=== PATIENT | male | born 1970 | race Caucasian/White ===

== ENCOUNTER 2022-02-28 08:19 | Emergency (ER) | payer OTHER, SELFPAY ==
[2022-02-28 08:28] VITALS: BP 187/114; PULSE 86; RESP 20; TEMP 36.9; O2SAT 98
--- NOTE | 2022-02-28 08:32 | ED.SKABFB ---
HPI - Skin/Abscess/Foreign Bdy General Chief complaint: Skin/Abscess/Foreign Body Stated complaint: rash on arms Time Seen by Provider: 02/28/22 08:37 Source: patient Mode of arrival: ambulatory Limitations: no limitations History of Present Illness HPI narrative: 51-year-old male presented for complaint of rash to both arms for almost 1 week. He states it started after clearing brush and has been treating poison jamila with Benadryl and Pepcid per pharmacist recommendations, and using hydrocortisone cream occasionally. He states he continues to have eruptions over both arms and endorses itching. Denies pain, drainage, or changes to any lotion, soap, detergent etc. He denies lesions anywhere else, denies lip, tongue, or throat swelling, itching, difficulty breathing or wheezing. MD complaint: rash Related Data Allergies Allergy/AdvReac Type Severity Reaction Status Date / Time No Known Drug Allergies Allergy Unknown Verified 02/28/22 08:37 Review of Systems Review of Systems: CONSTITUTIONAL: Denies body aches, fever, chills, or sweats. EYES: Denies visual changes, swelling or discharge. ENT: Denies rhinorrhea, congestion, sore throat CARDIOVASCULAR: Denies chest pain, palpitations, or edema. RESPIRATORY: Denies cough or dyspnea. GASTROINTESTINAL: Denies abdominal pain, nausea, vomiting, or diarrhea. SKIN: endorses rash, itching MUSCULOSKELETAL: Denies back pain, joint pain, or myalgia. NEUROLOGIC: Denies headache, numbness, tingling, or weakness. PMFSH Comments At time of signature, I have reviewed and agree with nursing past medical, surgical, social and family history unless otherwise noted. Please see nursing chart for further information. There is no relevant family history pertinent to the presenting complaint Exam Narrative: GENERAL: Well-appearing EYES: conjunctivae clear, and EOMI, no swelling ENT: Mucous membranes moist. Oropharynx without edema, erythema or lesions. CHEST: Clear to auscultation. No respiratory distress. HEART: Regular rate and rhythm. SKIN: Warm, dry. Scattered erythematous vesicular patches to bilateral forearms c/w contact dermatitis, small amount of oozing to sites, no pain NEURO: Alert and oriented x3. PSYCH: Normal mood and affect Course Course Emergency Course: Patient is aware of diagnosis, understands and agrees to treatment plan. Anticipatory guidance given. Patient agrees to follow-up as directed and is aware of reasons to seek care at the emergency department. Portions of this record may have been created with voice recognition software Level of Care: Express Care Visit Vital Signs Vital signs: Reviewed MDM - Skin/Abscess/Foreign Bdy MDM Narrative Medical decision making narrative: PE c/w contact dermatitis, c/w history of clearing brush. Also discussed elevated bp and the importance of close f/u with pcp. Instructed patient to go to nearest ER immediately for any worsening symptoms including but not limited to: fever, spreading rash, pain, sore throat, headache, dizziness, chest pain, trouble breathing, or any symptoms concerning to the patient. Differential Diagnosis Differential diagnosis: Likely abscess of skin or subcutaneous tissue, urticaria, herpes zoster, cellulitis and contact dermatitis Discharge Plan Discharge Clinical Impression: Contact dermatitis Patient Disposition: Home, Self-Care Condition: Stable Instructions: Antibiotic Form, Poison Jamila (ED) Additional Instructions: Your blood pressure is elevated today (above 120/80). Please follow-up with a primary care provider for further evaluation and management of this condition. Wash the area with gentle soap and water only. Use skin cream (Benadryl cream or hydrocortisone cream) as needed to reduce itchiness Avoid scratching when possible to prevent worsening of the condition and disruption of the skin that could lead to bacterial infection To relieve itching, place a cool washcloth or nghia
== END 2022-02-28 08:48 | disposition home or self-care (01) ==
PROVIDERS: Emergency Provider Nurse Practitioner Family
DX: L25.9 Unspecified contact dermatitis, unspecified cause (principal); Z98.84 Bariatric surgery status
CPT/HCPCS: 99203; G0463

== ENCOUNTER 2022-10-30 07:27 | Outpatient (CLI) | payer OTHER, SELFPAY ==
[2022-10-30 19:39] LABS: Basophils Absolute Auto 0.1 K/mm3 (0.0-0.1); Basophils Percent Auto 0.9 % (0.2-1.2); Eosinophils Absolute Auto 0.2 K/mm3 (0-0.3); Eosinophils Percent Auto 2.4 % (0-4.4); Hematocrit 50.9 % (42.0-52.0); Hemoglobin 15.2 g/dL (14.0-18.0); Immature Granulocyte Absolute 0.03 K/mm3 (0.00-0.031); Immature Granulocyte Percent A 0.4 % (0-0.5); Lymphocytes Absolute Auto 2.31 K/mm3 (0.9-3.2); Lymphocytes Percent Auto 29.4 % (18.3-44.2); Mean Corpuscular HGB Conc 29.9 g/dl (32-36); Mean Corpuscular Hemoglobin 24.6 pg (26-34); Mean Corpuscular Volume 82.5 fl (80-100); Mean Platelet Volume 10.3 fl (7.4-10.4); Monocytes Absolute Auto 0.7 K/mm3 (0.1-0.6); Monocytes Percent Auto 8.8 % (2.6-8.5); Neutrophils Absolute Auto 4.6 K/mm3 (1.3-6.7); Neutrophils Percent Auto 58.1 % (45.5-73.1); Platelet Count Result 355 k/mm3 (150-375); Red Blood Count 6.17 M/mm3 (4.6-6.20); White Blood Count 7.9 K/mm3 (4.5-10.0)
[2022-10-30 19:40] LABS: Alanine Aminotransferase 47 U/L (6-50); Albumin Level 4.5 g/dL (3.5-5.1); Alkaline Phosphatase 100 U/L (38-126); Anion Gap 7 mmol/L (8-16); Aspartate Amino Transferase 70 U/L (17-59); Bilirubin,Total 1.1 mg/dL (0.2-1.3); Blood Urea Nitrogen 15 mg/dL (9-20); Calcium 9.2 mg/dL (8.4-10.2); Carbon Dioxide 28 mmol/L (22-30); Chloride 107 mmol/L (98-107); Cholesterol 200 mg/dL (0-200); Estimated Glomerular Filt Rate > 60; Glucose 77 mg/dL (65-110); HDL Direct 32 mg/dL; Potassium 4.5 mmol/L (3.4-5.0); Sodium 142 mmol/L (137-145); Triglycerides 117 mg/dL (<150)
[2022-10-30 19:51] LABS: LDL Cholesterol Direct 123 mg/dL
[2022-10-30 20:07] LABS: Prostate Specific Antigen 1.6 ng/mL (< OR = 4.0)
[2022-10-30 20:42] LABS: Hypochromasia 1+ (NORMAL); Platelet Estimate Adequate (Adequate); Schistocytes None Seen (NORMAL)
[2022-10-30 20:43] LABS: Anisocytosis 2+ (NORMAL)
== END 2022-10-30 07:28 | disposition home or self-care (01) ==
PROVIDERS: PCP Family Medicine; Visit Provider Family Medicine
DX: Z00.00 Encounter for general adult medical examination without abnormal findings (principal)
CPT/HCPCS: 36415; 80053; 80061; 84153; 85025; G0103

== ENCOUNTER 2023-04-23 07:32 | Outpatient (CLI) | payer OTHER, SELFPAY ==
[2023-04-23 19:27] LABS: Alanine Aminotransferase 46 U/L (6-50); Albumin Level 4.1 g/dL (3.5-5.1); Alkaline Phosphatase 85 U/L (38-126); Aspartate Amino Transferase 51 U/L (17-59); Bilirubin,Total 0.7 mg/dL (0.2-1.3)
[2023-04-23 19:56] LABS: Hepatitis B Surface Antigen Negative (Negative)
[2023-04-23 20:02] LABS: HAV RESULT Negative (Negative); Hepatitis B Core IgM Result Negative (Negative)
[2023-04-23 20:13] LABS: Hepatitis C Virus Antibody Negative (Negative)
== END 2023-04-23 07:33 | disposition home or self-care (01) ==
PROVIDERS: PCP Family Medicine; Visit Provider Family Medicine
DX: E66.9 Obesity, unspecified (principal); I10 Essential (primary) hypertension
CPT/HCPCS: 36415; 80074; 80076

== ENCOUNTER 2024-03-31 15:28 | Outpatient (CLI) | payer OTHER, SELFPAY ==
--- NOTE | ~2024-03-31 | XR_ITS ---
EXAMINATION: XR knee LT min 4V DATE: 03/31/2024 15:48 INDICATION: Unspecified injury of left lower leg, initial encounter. TECHNIQUE: 4 views of left knee were obtained. COMPARISON: None. FINDINGS: Alignment is normal. No fracture. There is mild tricompartmental osteoarthritis characteriz ed by tiny osteophytes. No joint space narrowing. There is a small knee joint effusion. IMPRESSION: 1. Mild left knee osteoarthritis. 2. Small left knee joint effusion. Reviewed, dictated and finalized at location A.
== END 2024-03-31 15:29 | disposition home or self-care (01) ==
PROVIDERS: PCP Family Medicine; Visit Provider Nurse Practitioner Family
DX: S89.92XA Unspecified injury of left lower leg, initial encounter (principal); M17.12 Unilateral primary osteoarthritis, left knee; M25.462 Effusion, left knee
CPT/HCPCS: 73564

== ENCOUNTER 2025-05-13 00:23 | Day surgery (SDC) | payer OTHER, SELFPAY ==
[2025-05-02 09:28] VITALS: BMI 43.6
[2025-05-13 07:44] VITALS: BP 154/99; PULSE 94; RESP 16; TEMP 36.6; O2SAT 97; BMI 42.5
[2025-05-13] MEDS: LACTATED RINGERS 1,000 ML 150 ML IV CONT ×2 (07:53→11:08)
[2025-05-13] MEDS: SIMETHICONE ORAL SUSPENSION 20 MG/0.3 ML 30 ML BOTTLE 1.8 ML PO (08:06)
--- NOTE | 2025-05-13 08:36 | P.PNAN_ITS ---
Anes - Initial Pre Proc Eval Procedure: Operation Date: 05/13/25 09:00 Proposed Procedures p EGD & Screening Colonoscopy - Malik Gutierres MD Date/Time: 05/13/25 08:36 Surgeon: Malik Gutierres MD Pre Op Diagnosis: Encounter for screening for malignant neoplasm of Patient Data Age: 54 Gender: M Height: 1.83 m Weight: 142.2 kg Last Vital Signs Temp 97.8 F 05/13/25 07:44 Pulse 94 05/13/25 07:44 Resp 16 05/13/25 07:44 BP 154/99 H 05/13/25 07:44 Pulse Ox 97 05/13/25 07:44 O2 Del Method Room Air 05/13/25 07:44 Allergies Allergy/AdvReac Type Severity Reaction Status Date / Time No Known Drug Allergies Allergy Unknown Verified 05/13/25 07:43 Home Medications ?Medication ?Instructions ?Recorded ?Confirmed ?Type omeprazole 40 mg capsule,delayed 40 mg PO BID #180 cap s 12/28/24 05/13/25 Rx release lisinopril 40 mg tablet See Rx Instructions .Route 0 01/13/25 05/13/25 Rx .COMPLEX #90 tabs Patient hx anesthesia problems: post op nausea/vomiting and other (slow to emerge in the past. ) Family hx anesthesia problems: none Results Review: All pre-operative results and documents have been reviewed as part of the pre- operative evaluation. [facility] Surgical History Surgical History H/O gastric sleeve History of back surgery Family History Family History Father Malignant neoplasm of prostate Mother Hypertension Social History Social History Smoking status: Former smoker Tobacco type: smokeless tobacco Smokeless tobacco user: chewing tobacco Alcohol intake: current Drinks per week: 15 Alcohol use details: Beer Substance use: never Substance use type: does not use Lack of Transportation: No Lack of Food: Never True Current Housing: I Have Housing Concerned About Future Housing: No Difficulty Paying Gas/Electric Bills: No Difficulty Paying for Meds: No Currently Unemployed: No Education: Associate Degree Difficulty w/ Childcare or Family Care: No Living arrangements: with family Occupation/Education: occupation 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 HTN, BMI 42, GERD w hx of gastric sleeve, no early satiety. 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 Informed Consent: The patient's anesthetic plan and its attendant risks and benefits were discussed with the patient/family/POA. Questions were solicited and answers provided to the satisfaction of the patient/family/POA.
--- NOTE | 2025-05-13 09:07 | P.HP_ITS ---
H&P: HPI History of Present Illness Date/Time: 05/13/25 09:07 Chief Complaint: History of gastric sleeve- GERD-screening colonoscopy Narrative: the patient has a history of vertical gastrectomy, and is now experiencing almost daily episodes of heartburn, mainly at night associated with regurgitation and nausea. He is referred for EGD. There is no dysphagia. In addition he is also referred for screening colonoscopy. Review of Systems Review of Systems: All systems reviewed & are unremarkable except as noted in HPI and below PMFSH Surgical History Surgical History H/O gastric sleeve History of back surgery Family History Family History Father Malignant neoplasm of prostate Mother Hypertension Social History Social History Smoking status: Former smoker Tobacco type: smokeless tobacco Smokeless tobacco user: chewing tobacco Alcohol intake: current Drinks per week: 15 Alcohol use details: Beer Substance use: never Substance use type: does not use Lack of Transportation: No Lack of Food: Never True Current Housing: I Have Housing Concerned About Future Housing: No Difficulty Paying Gas/Electric Bills: No Difficulty Paying for Meds: No Currently Unemployed: No Education: Associate Degree Difficulty w/ Childcare or Family Care: No Living arrangements: with family Occupation/Education: occupation 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 Gender identity (if verbalized by the patient): Male Spiritual care concerns: No Agree to blood products: Yes Meds Home Medications and Allergies Home Medications ?Medication ?Instructions ?Recorded ?Confirmed ?Type omeprazole 40 mg capsule,delayed 40 mg PO BID #180 cap s 12/28/24 05/13/25 Rx release lisinopril 40 mg tablet See Rx Instructions .Route 0 01/13/25 05/13/25 Rx .COMPLEX #90 tabs Allergies Allergy/AdvReac Type Severity Reaction Status Date / Time No Known Drug Allergies Allergy Unknown Verified 05/13/25 07:43 Vital Signs Vital Signs - 24 hr 05/13/25 07:44 Temperature 97.8 F Pulse Rate 94 Respiratory Rate 16 Blood Pressure 154/99 H Pulse Oximetry 97 Oxygen Delivery Room Air Exam Const: General: cooperative and healthy appearing Resp: Effort & Inspection: normal respiratory effort and able to speak in complete sentences Auscultation: clear to auscultation bilaterally Cardio: Rate: regular rate Rhythm: regular rhythm GI: Inspection: normal to inspection GI Palp: No No hepatosplenomegaly present Auscultation: normal bowel sounds Rectal Exam: deferred Skin: General skin exam: normal color Psych: Appearance: grossly normal Mental Status: mental status grossly normal Assessment and Plan Assessment and plan (1) GERD (gastroesophageal reflux disease): Code(s): K21.9 - Gastro-esophageal reflux disease without esophagitis Status: Acute Assessment and Plan: The patient is deemed a good candidate for the procedures. Consent signed. Will proceed. (2) Colon cancer screening: Code(s): Z12.11 - Encounter for screening for malignant neoplasm of colon Status: Acute
--- NOTE | 2025-05-13 09:26 | SUR.PREOP ---
Patient informed of anesthesia delay- no issues noted at this time. I will keep the patient updated.
--- NOTE | 2025-05-13 10:55 | SUR.OPER ---
EGD: ended 1048 COLON: started 1054
--- NOTE | 2025-05-13 11:08 | S_PTH ---
PATIENT: Leonid Gonzalez LOC: [facility] U#:[id number] AGE/SX: 54/M ROOM: RE05/13/[address]: Malik Gutierres MD : 1970 BED: DIS: 05/13/2025 SPEC #: [id number] RECD: 05/13/25 11:44 STATUS: LOUIS REValentin #: [id number] VIVIANA: 05/13/25 11:[address]: Malik Gutierres DEPT: [facility] Surgical RECD BY: Federico Sepulveda ENTERED: 05/13/25 11:44 SP TYPE: Surgical OTHR DR: Yinka Charles MD Tissues: A - Colon Polypectomy B - Gastric Biopsy C - Gastric Biopsy Procedures: Hematoxylin and Eosin Stain Gross and Microscopic Level 4
[2025-05-13 11:09] VITALS: BP 128/83; PULSE 77; RESP 18; O2SAT 96
[2025-05-13 11:19] VITALS: BP 127/89; PULSE 74; RESP 18; O2SAT 98
[2025-05-13 11:29] VITALS: BP 142/100; PULSE 72; RESP 18; O2SAT 98
--- NOTE | 2025-05-13 11:41 | SUR.PHASEII ---
DR MORALES NOTIFIED OF BLOOD PRESSURE 149/100, PT IS ON BLOOD PRESSURE MEDS AND HAS NOT TAKEN THEM TODAY, ORDER FOR PT TO CONTINUE MEDS AT HOME LIKE NORMAL, PT STATES UNDERSTANDING AND NO CONCERNS.
== END 2025-05-13 11:48 | disposition home or self-care (01) ==
PROVIDERS: PCP Family Medicine; Visit Provider Internal Medicine Gastroenterology
PROC: 0DJ08ZZ Inspection of Upper Intestinal Tract, Via Natural or Artificial Opening Endoscopic (ICD-10-PCS; CPT 45378; principal; 2025-05-13 09:00)
DX: Z12.11 Encounter for screening for malignant neoplasm of colon (principal); D12.2 Benign neoplasm of ascending colon; K64.8 Other hemorrhoids; K21.9 Gastro-esophageal reflux disease without esophagitis; K29.30 Chronic superficial gastritis without bleeding; I10 Essential (primary) hypertension; F17.220 Nicotine dependence, chewing tobacco, uncomplicated; E66.01 Morbid (severe) obesity due to excess calories; Z68.41 Body mass index [BMI] 40.0-44.9, adult; Z98.84 Bariatric surgery status; Z98.1 Arthrodesis status; Z80.42 Family history of malignant neoplasm of prostate
CPT/HCPCS: 43239; 45385; 88305; J2003; J2704; J7120

== ENCOUNTER 2025-05-17 09:06 | Outpatient (CLI) | payer OTHER, SELFPAY ==
--- OUTSIDE RECORDS SUMMARY | 2025-05-17 09:31 | XMS_ITS | Clinical Summary ---
Author Organization [facility] Address [address] [place] [phone] Phone Care Team Providers Care Oil Dispenser Name Role Phone Unavailable Primary Care Provider Unavailabl e Allergies No known active allergies Medications No known medications Active Problems No known active problems Family History Medical History Relation Name Comments Cancer Father Relation Name Status Comments Father Alive Mother Social History Tobacco Use Types Packs/Day Years Used Date Smoking Tobacco: Never Smokeless Tobacco: Never Alcohol Use Standard Drinks/Week Comments Yes 0 (1 standard drink = 0.6 oz pur e alcohol) occasional Sex and Gender Information Value Date Recorded Sex Assigned at Not on file Legal Sex Male 9:25 PM CDT Gender Identity Not on file Sexual Orientation Not on file Last Filed Vital Signs Vital Sign Reading Time Taken Comments Blood Pressure 150/94 09/23/2018 11:42 AM PUMP ATTENDANT Pulse 82 09/23/2018 11:42 AM PUMP ATTENDANT Temperature 37 C (98.6 F) 09/23/2018 11:42 AM PUMP ATTENDANT Respiratory Rate 16 09/23/2018 11:42 AM PUMP ATTENDANT Oxygen Saturation 96% 09/23/2018 11:42 AM PUMP ATTENDANT Inhaled Oxygen Concentration - - Weight 127.5 kg (281 lb) 09/23/2018 11:42 AM PUMP ATTENDANT Height 182.9 cm (6') 09/23/2018 11:42 AM PUMP ATTENDANT Body Mass Index 38.11 09/23/2018 11:42 AM PUMP ATTENDANT Plan of Treatment Health Maintenance Due Date Last Done Comments Hepatitis C Virus (HCV) Screening 1970 TdaP Immunization 1970 Hepatitis B Immunization (1 of 3 - 19+ 3-dose series) 1989 Cologuard 10/18/2015 Colonoscopy 10/18/2015 Colorectal Cancer Screening 10/18/2015 Immunochemical Fecal Occult Blood 10/18/2015 Pneumococcal Immunization (5 0+ years) (1 of 1 - PCV) 2020 Zoster Immunization (1 of 2) 2020 Influenza Immunization (#1) 2025 SARS-COV-2 Immunization (3 - 2024- season) 2025 08/03/2021, 07/13/2021 Respiratory Syncytial Virus (RSV) Immunization (Adult) (1 - 1-dose 75+ series) 2045 Human Papillomavirus (HPV) Immunization Aged Out No longer eligible b ased on patient's age to complete this topic Meningococcal Immunization (ACWY) Aged Out No longer eligible b ased on patient's age to complete this topic Rotavirus Immunization Aged Out No lo nger eligible based on patient's age to complete this topic [place] [address] [address] [address]
--- NOTE | 2025-05-29 09:52 | WPDHOMESLEEP ---
Sleep Study - Home Unattended Date of Study: 05/17/25 Ordering Provider: Yinka Charles MD Interpreting Provider: Keshia Morelos MD Home Sleep Study Type: Watch PAT Height: 1.83 m Weight: 145.603 kg Body Mass Index: 43.5 Neck Circumference (inches): 19.5 [place]: 0 Reason for Sleep Study Known obstructive sleep apnea; loud snoring , nocturnal GERD, uncontrolled hypertension Sleep History Leonid Gonzalez is a 54-year-old male with a history of severe obstructive sleep apnea diagnosed in 2016. His chart indicates that he has used CPAP. Dr Charles's office note indicates that the patient has uncontrolled hypertension on lisinopril 40 mg daily, suspects that untreated obstructive sleep apnea is contributing to his blood pressure. He had a gastric sleeve, has a BMI of 43.5, and nocturnal heartburn. He saw Dr Gutierres GI, for almost daily episodes of heartburn, mainly at night associated with regurgitation and nausea. He had an EGD showing mild chronic superficial gastritis in the fundus, in the body of the stomach, and in the antrum. the patient history includes loud snoring, nocturnal heartburn, waking during the night and waking earlier than he plans to awaken for his day. He has difficulty returning to sleep when he awakens during the night. He denies daytime sleepiness, fatigue, drowsy driving, leg discomfort or leg kicking, clenching or grinding his teeth, muscle weakness with strong emotion, feeling paralyzed on falling asleep or upon awakening or vivid dreamlike scenes upon awakening or falling asleep. Normal bedtime is 10:00 p.m. falling asleep within 30 minutes, spending 7 hours in bed, 6 hours of sleep. On days off, bedtime is 11:00 p.m. falling asleep within 30 minutes, spending 7 hours in bed sleeping 6 hours. He feels a little bit restored when he wakes on his days off. He does not take planned naps Habits: Tobacco : none Caffeine : none Alcohol : 3-4 nights per week, 2 glasses, time of his last drink is 7:00 p.m. Recreational substances : none PMFSH Past Medical History Medical History (Updated 05/29/25 @ 10:11 by Keshia Morelos MD) Obstructive sleep apnea GERD (gastroesophageal reflux disease) Obesity Essential hypertension Surgical History Surgical History H/O gastric sleeve History of back surgery Family History Family History Father Malignant neoplasm of prostate Mother Hypertension Social History Social History Smoking status: Former smoker Tobacco type: smokeless tobacco Smokeless tobacco user: chewing tobacco Alcohol intake: current Drinks per week: 15 Alcohol use details: Beer Substance use: never Substance use type: does not use Lack of Transportation: No Lack of Food: Never True Current Housing: I Have Housing Concerned About Future Housing: No Difficulty Paying Gas/Electric Bills: No Difficulty Paying for Meds: No Currently Unemployed: No Education: Associate Degree Difficulty w/ Childcare or Family Care: No Living arrangements: with family Occupation/Education: occupation 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 Gender identity (if verbalized by the patient): Male Spiritual care concerns: No Agree to blood products: Yes Medications Home Medications ?Medication ?Instructions ?Recorded ?Confirmed ?Type omeprazole 40 mg capsule,delayed 40 mg PO BID #180 caps 12/28/24 05/13/25 Rx release lisinopril 40 mg tablet See Rx Instructions .Route 01/13/25 05/13/25 Rx .COMPLEX #90 tabs Sleep Procedure The sleep study was completed using The [employer] MethodT a technically adequate device with seven channels: peripheral arterial tone, actigraphy, body position, snore, respiratory movement, pulse oximetry, sleep staging, and heart rate. Prior to using the device, the patient received verbal and written instructions for its application and was provided with the help desk phone number for additional telephonic instruction with 24-hour availability of qualified personnel to answer questions. Sleep Architecture The total recording time is 7 hrs, 9 min. The total sleep time is 6 hrs, 18 min. Sleep latency is 22 minutes. REM latency is 34 minutes. The patient had 6 episodes of waking. Sleep architecture shows 14.0% deep sleep, 60.1% light sleep, and 25.9% stage REM. The patient spent 99.7% of total sleep time in the supine position. Sleep efficiency was 88%. Respiratory Analysis The overall AHI (pAHI 3%:) is 27.4. The central AHI is 0.2. The AHI was 20.0 in NREM and 48.6 in REM sleep. The AHI was 27.5 in Supine and N/A in Non-supine sleep. Percent of Mikel Sanz respirations is 0% Oximetry Data The oxygen desaturation index (BHANU 4%:) is 12.2. The mean saturation is 94%, and the lowest saturation is 88%. Time spent with saturation < 88% is 0.2 minutes. Snoring Profile Snoring average intensity is 43 dB. The patient snored above 45 decibels for 80.2 minutes, 21.2% of sleep time. Cardiac Profile The average pulse rate is 67 beats per minutes. The lowest pulse rate is 56 bpm. The highest pulse rate is 106 bpm. Cardiac rhythm analysis in sleep does not show atrial fibrillation. Assessment and Plan Assessment and Plan (1) Obstructive sleep apnea: Code(s): G47.33 - Obstructive sleep apnea (adult) (pediatric) Status: Acute Assessment and Plan: This home sleep test using WatchPat on 05/17/2025 shows moderate obstructive sleep apnea, the apnea-hypopnea index is 17 (p>4%) with desaturation to 88%, 0.2 minutes below 88%, and loud persistent snoring. His AHI using 3% criteria is 27.2. Untreated obstructive sleep apnea is likely contributing to his nocturnal heartburn and hypertension. I recommend that this patient be prescribed Resmed AirSense 11 AutoPAP 5-15 cm H2O, CPAP mask/filters/tubing and humidifier chamber. This should be used with all episodes of sleep. Compliance should be reviewed within 31-90 days of starting therapy for usage greater than 4 hours per night greater than 70% of the nights. The patient should be asked about symptoms such as excessive daytime sleepiness, quality of sleep, decreased nocturia, increased mental functioning such as memory, mood, and concentration. If he does not benefit from using autoPAP, he should have a CPAP titration in the sleep lab with a sedative available, if needed, to get to sleep and stay asleep during the study. He should not nap on the day of testing. BMI is 43.5. Clinical data suggests that weight loss of 10% can reduce the severity of respiratory events and snoring and improve AHI by as much as 25%. He has had a gastric sleeve. Data The data obtained during this sleep study is adequate for interpretation. Certification This sleep study has been reviewed by a board certified sleep medicine physician.
[2025-05-29 10:20] VITALS: BMI 43.5
== END 2025-05-18 11:00 | disposition home or self-care (01) ==
LOC: ANHCSM 09:10
PROVIDERS: PCP Family Medicine; Visit Provider Family Medicine
DX: G47.30 Sleep apnea, unspecified (principal)
CPT/HCPCS: 95800